=== PATIENT | female | born 1965 | race African-American/Black ===

== ENCOUNTER 2019-06-29 10:47 | Inpatient (IN) ==
[2019-06-29] MEDS ORDERED: LABETALOL IV ONE (11:04)
[2019-06-29] MEDS ORDERED: MORPHINE IV ONE (11:06)
[2019-06-29] MEDS ORDERED: ZOFRAN IV ONE (11:06)
[2019-06-29] MEDS ORDERED: AFRIN NASAL SPRAY NAS ONE (11:12)
--- NOTE | 2019-06-29 11:21 | EKG Report ---
Test Performed on : 06/29/2019 11:15:06 AM Test Reason : severe hypertension Blood Pressure : / mmHG Vent. Rate : 090 BPM Atrial Rate : 090 BPM P-R Int : 132 ms QRS Dur : 092 ms QT Int : 380 ms P-R-T Axes : 055 -40 094 degrees QTc Int : 464 ms Normal sinus rhythm. Possible Left atrial enlargement Left axis deviation Left ventricular hypertrophy with repolarization abnormality Abnormal ECG When compared with ECG of 14-FEB-2019 15:58, No significant change was found Unconfirmed Result
--- NOTE | 2019-06-29 11:30 | Diag Imaging Result Doc PS360 ---
EXAM: CHEST-PORTABLE HISTORY: hypertension TECHNIQUE: Single view COMPARISON: 02/14/2019 FINDINGS: The lungs are well expanded. The heart is enlarged. The vessels are not distended. There are no infiltrates. No effusion identified. IMPRESSION: Cardiomegaly Electronically signed by Matty Bacon 06/29/2019 11:27 AM
[2019-06-29 11:49] LABS: BASO# 0.03 X1000 (0.0-0.2); BASO% 0.4 % (0.0-0.8); EOS# 0.14 X1000 (0.0-0.7); EOS% 1.8 % (0.0-10.0); HEMATOCRIT 39.4 % (37.0-47.0); HEMOGLOBIN 11.9 g/dL (12.0-16.0); IMM GRAN# 0.06 X1000 (0.0-0.04); IMM GRAN% 0.8 % (0.0-0.5); LYMPH# 1.54 X1000 (1.2-3.4); LYMPH% 19.9 % (20.5-51.1); MCH 23.4 PG (27-31); MCHC 30.2 g/dL (33-37); MCV 77.4 FL (81-99); MONO% 6.5 % (1.7-9.3); MPV 11.4 FL (7.4-10.4); NEUT# 5.45 X1000 (1.4-6.5); NEUT% 70.6 % (42.2-75.2); PLT 305 X1000 (130-400); RBC 5.09 XMIL (4.2-5.4); RDW 15.6 % (11.5-14.5); WBC 7.72 X1000 (4.8-10.8)
[2019-06-29 11:57] LABS: INR 1.02; PROTIME 13.5 Seconds (11.0-16.0)
[2019-06-29 11:58] LABS: PTT 31.3 Seconds (22.3-41.8)
--- NOTE | 2019-06-29 12:01 | PROVIDER DOCUMENTATION ---
This chart was entered by Norma Mcfarland Scribe, acting as scribe for Octaviano Phelps MD. HPI-EENT General - General Chief Complaint: B/P Problems Stated Complaint: NOSEBLEED Time Seen by Provider: 06/29/19 10:50 Source: patient, EMS (first response) Allergies/Adverse Reactions: Patient Allergies Allergy/AdvReac Type Severity Reaction Status Date / Time No Known Allergies Allergy Verified 06/28/19 19:17 Home Medications: Home Medication List Medication Instructions Recorded Confirmed Last Taken Type Clonidine [Catapres] 1 tab PO DAILY 06/28/19 06/28/19 06/28/19 History Empagliflozin/Metformin HCl 1 tab PO BID 06/28/19 06/28/19 06/28/19 History [Synjardy Xr 25-1,000 mg Tablet] Insulin Humulin 70/30 [Humulin 35 unit SUBQ BID CC 06/28/19 06/28/19 06/28/19 History 70/30] - History of Present Illness-EENT General Nature of Presenting Problem: 54 yobf presents to the ed via ems with c/o epistaxis and elevated BP (243/137). pt sts has hx of HTN and did not take medications this am. pt was seen at [facility] on 06/27/19 for rt sided epistaxis and this am left nare started bleedin g as well. pt has packing in place in rt nare on exam pt called dr moon this am and was told to come to ed. dr moon will see pt in ed EENT Location: reports: nose Severity: reports: moderate Onset/Duration: reports: this morning Timing: reports: still present Prearrival Treatment: Initiated nasal packing (rt nare) Associated Symptoms: reports: denies symptoms Locality of Occurance: Home Similar Symptoms Previously?: Yes (epistaxis on 06/27/19) Recently seen or treated by another doctor?: Yes (in ed 06/27/19) - Nose Nose Problem Symptoms: nosebleed Review of Systems - Adult - REVIEW OF SYSTEMS - ADULT Constitutional: denies: chills, fever Eyes: reports: no symptoms reported Ears, Nose, Mouth & Throat: reports: see HPI, epistaxis. denies: throat pain Cardiovascular: denies: chest pain, palpitations Respiratory: denies: cough, wheezing Gastrointestinal: denies: abdominal pain, diarrhea, nausea, vomiting Genitourinary: reports: no symptoms reported Musculoskeletal: denies: back pain, neck pain Integumentary: reports: no symptoms reported Neurological: denies: dizziness/vertigo, headache/migraines, tremors Psychiatric: reports: no symptoms reported Endocrine: reports: no symptoms reported Hematologic/Lymphatic: reports: no symptoms reported Allergic/Immunologic: reports: no symptoms reported All Other Systems: Reviewed and Negative Past History - Adult - PAST MEDICAL HISTORY-ADULT Review of Records: reports: Old Records Reviewed, Nursing Assessment Review, Medications Reviewed, Social history reviewed & non-contributory. Major Childhood Illnesses: reports: denies history Cardiovascular: reports: HTN, hyperlipidemia Respiratory: reports: denies history Gastrointestinal: reports: GERD Obstetrical/Gynecological: reports: denies history Genitourinary: reports: denies history Musculoskeletal: reports: denies history Neurological: reports: CVA, stroke deficits (slurred speech) Psychiatric: reports: denies history Endocrine/Immune: reports: Diabetes Diabetes Type: Type 2 Other Conditions: reports: denies history - PRIOR SURGERIES/PROCEDURES Surgical/Procedure History: reports: hysterectomy, - IMMUNIZATION STATUS Childhood Immunizations: See Nurse Assessment Flu Vaccine: See Nurse Assessment - FAMILY HISTORY Family History: reviewed, not pertinent - SOCIAL HISTORY Smoking: quit greater than 1 year Substance Use: alcohol Alcohol Use Frequency: occasionally Number of drinks per typical drinking period:: 3-4 drinks Living Situation: family Physical Exam- EENT - Physical Exam EENT Initial Vital Signs Reviewed: Yes (noted BP 223/126 did not take HTN meds today) General Appearance: appears well, alert, no apparent distress Eye Exam: bilateral eye: normal inspection, PERRL Ear Exam: bilateral ear: auricle normal, canal normal, TM normal Nasal Exam: active bleeding (left side), dried blood (rt nare), other (has packing in rt nare) Throat Exam: other (pt has post nasal blood seen fro nare) Neck: non-tender, full range of motion, normal inspection Respiratory: chest non-tender, lungs clear, normal breath sounds Cardiovascular: normal peripheral pulses, regular rate, rhythm Abdominal Exam: non tender, soft Lymphatic: no adenopathy Back Exam: no CVA tenderness, no vertebral tenderness Extremity: normal range of motion, non-tender, normal gait, normal inspection Integumentary: normal color, normal turgor, warm/dry Neurologic: grossly normal Psych/Mental Status: normal mood/affect, normal thought content, normal thought process, oriented x 3 Progress - PLAN OF CARE/RESULTS Progress/Plan/Lab Results: Vital Signs - 8 hr 06/29/19 10:56 06/29/19 11:08 06/29/19 11:14 Temperature 98.3 F Pulse Rate 88 91 H Respiratory Rate 20 23 Blood Pressure 223/136 223/136 219/140 O2 Sat by Pulse Oximetry 97 98 98 Laboratory Results - last 24 hr 06/29/19 06/29/19 11:24 11:24 WBC 7.72 RBC 5.09 Hgb 11.9 L Hct 39.4 MCV 77.4 L MCH 23.4 L MCHC 30.2 L RDW Std Deviation 15.6 H Plt Count 305 MPV 11.4 H Immature Gran % (Auto) 0.8 H Neut % (Auto) 70.6 Lymph % (Auto) 19.9 L [place] % (Auto) 6.5 Eos % (Auto) 1.8 Baso % (Auto) 0.4 Immature Gran # (Auto) 0.06 H Neut # (Auto) 5.45 Lymph # (Auto) 1.54 [place] # (Auto) 0.50 Eos # (Auto) 0.14 Baso # (Auto) 0.03 PT 13.5 INR 1.02 PTT (Actin FS) 31.3 Orders Category Date Time Status Misc. NRSG Communication Order DIRECTED Care 06/29/19 11:05 Active Nursing- Obtain EKG once Care 06/29/19 11:03 Active Saline Loc NOW Care 06/29/19 11:03 Active CHEST-PORTABLE [RAD] Stat Exams 06/29/19 11:04 Completed CBC WITH ELECTRONIC DIFF [HEME] Stat Lab 06/29/19 11:24 Completed COMPREHENSIVE METABOLIC PANEL [CHEM] Stat Lab 06/29/19 11:24 Received PRO B-NATRIURETIC PEPTIDE Stat Lab 06/29/19 11:24 Received PROTIME WITH INR [COAG] Stat Lab 06/29/19 11:24 Completed PTT [COAG] Stat Lab 06/29/19 11:24 Completed TROPONIN T Stat Lab 06/29/19 11:24 Received TYPE & SCREEN [BBK] Stat Lab 06/29/19 11:24 Received Labetalol Med 06/29/19 11:04 Discontinued 20 mg IV NOW ONE Morphine Med 06/29/19 11:06 Discontinued 2 mg IV NOW ONE Ondansetron [Zofran] Med 06/29/19 11:06 Discontinued 4 mg IV NOW ONE Oxymetazoline Nasal [place] [Afrin Nasal [place]] Med 06/29/19 11:12 Discontinued 1 ml ANISA NOW ONE EKG [EKG] Stat Ther 06/29/19 11:04 Draft Result Diagrams: 06/29/19 11:24 - REASSESSMENT Reassessment #1 Time Reassessed: 11:59 Status: improving (GIven iVF, morphine/zofran for pain, IV labetalol for HTN) - EKG 1 Time of EKG reading by physician:: 11:15 EKG Read and Signed by:: Octaviano Phelps EKG Interpretation (*Must complete 3 of following elements*): Abnormal Rate: 90 Rhythm: nsr [place]: left (deviation) QRS: LVH (with repolarization abnormality) NE Interval: normal ST Wave: normal Comments: possible left atrial enlargement - XRAY 1 XRAY: Bilateral XRAY Study: Chest Impression: See EMR Report (EXAM: CHEST-PORTABLE HISTORY: hypertension TECHNIQUE: Single view COMPARISON: 02/14/2019 FINDINGS: The lungs are well expanded. The heart is enlarged. The vessels are not distended. There are no infiltrates. No effusion identified. IMPRESSION: Cardiomegaly Electronically signed by Matty Bacon 06/29/2019 11:27 AM 06/29/19 1127 Interpreting Physician: Matty Bacon MD Dictated Date/Time: 06/29/19 1126 cc: Octaviano Phelps MD; None,PCP) - CONSULTS/PCP/HOSPITALIST Notification #1 *Consult/PCP/Hospitalist*: dr moon ENT Time Discussed: 11:51 (is at bedside and speaking with pt and dr phelps. pt will go to sx) Consult Disposition: Will see in ED Departure - Departure Date of Disposition Decision: 06/29/19 Time of Disposition Decision: 12:00 DIAGNOSIS: Hypertensive urgency, malignant, Epistaxis, recurrent Disposition: ADMITTED INPATIENT 09 Certified Medical Emergency: Emergent Condition: Fair Referrals and Follow-Ups: None,PCP [Primary Care Provider] - - Critical Care Note This patient required my direct & personal management of CC.: Yes Total Time (mins): 31 Critical Care Statement: This patient required my direct personal management to treat or rule out processes, the absence of which, could potentiallly result in sudden, clinically significant life or limb threatening deterioration. Attestation - Physician/ BILL Attestation Patient care was provided by Advanced Practice Provider:: No The physician spent face to face time with patient:: Yes Advanced Practice Provider documentation review:: Supervising physician onsite and consulted in the evaluation and care of this patient. The physician did have a face to face encounter with the patient. This chart was documented by the indicated scribe, (Norma Mcfarland Scribe) and accurately reflects the services I performed and decisions made by me, Octaviano Phelps MD, as attested by the provider's signature.
[2019-06-29] MEDS ORDERED: NEO-SYNEPHRINE 1% NASAL SPRAY ONE (12:05)
[2019-06-29 12:18] LABS: AGAP 14; ALB/GLOB RATIO 1.4; ALBUMIN 4.4 g/dL (3.5-5.0); ALKALINE PHOSPHATASE 82 U/L (32-104); BUN 10 mg/dL (8-22); CALCIUM 9.6 mg/dL (8.8-10.2); CHLORIDE 99 mmol/L (98-107); COSMO 280; CREATININE 0.7 mg/dL (0.5-0.9); ESTIMATED GFR > 60; GLUCOSE 192 mg/dL (70-104); GOT 14 U/L (10-30); GPT 11 U/L (10-36); POTASSIUM 4.4 mmol/L (3.5-5.1); SODIUM 138 mmol/L (136-145); TCO2 25 mmol/L (25-35); TOTAL BILIRUBIN 0.44 mg/dL (0.20-1.00); TOTAL PROTEIN 7.6 g/dL (6.3-8.3)
[2019-06-29] MEDS ORDERED: AFRIN NASAL SPRAY ONE (12:20)
[2019-06-29] MEDS ORDERED: FENTANYL ONE (12:26)
[2019-06-29] MEDS ORDERED: VERSED ONE (12:26)
[2019-06-29] MEDS ORDERED: DIPRIVAN 1% ONE ×2 (12:26→12:45)
[2019-06-29] MEDS ORDERED: XYLOCAINE 1%/EPI 1:100,000 ONE (13:11)
[2019-06-29] MEDS ORDERED: ZOFRAN ONE (13:51)
[2019-06-29] MEDS ORDERED: XYLOCAINE-MPF 2% ONE (13:51)
[2019-06-29] MEDS ORDERED: QUELICIN (DOSE) ONE (13:51)
[2019-06-29] MEDS ORDERED: VENTOLIN HFA ONE (13:52)
[2019-06-29] MEDS ORDERED: APRESOLINE IV ONE (14:06)
[2019-06-29] MEDS ORDERED: BREVIBLOC ONE (14:06)
[2019-06-29] MEDS ORDERED: ZOFRAN IV PRN (14:11)
[2019-06-29] MEDS ORDERED: APRESOLINE ONE (14:21)
[2019-06-29] MEDS: CARDENE 20 MG/NS 20 MG/200 ML PIGGYBACK IV SCH ×5 (14:40→23:42)
[2019-06-29] MEDS ORDERED: NORVASC PO SCH (17:45)
[2019-06-29] MEDS ORDERED: COZAAR PO ONE (17:57)
[2019-06-29] MEDS ORDERED: ALDACTONE PO ONE (17:58)
[2019-06-29] MEDS: LR 1,000 ML IV SCH (18:17)
[2019-06-29] MEDS: NORCO-5 PO PRN (18:18)
[2019-06-29] MEDS: HUMULIN R SUBQ SCH ×2 (18:29→20:32)
[2019-06-29] MEDS: MIRALAX PO SCH (18:30)
[2019-06-29] MEDS: NORVASC PO SCH (20:31)
[2019-06-29] MEDS: COREG PO SCH (20:32)
[2019-06-30] MEDS: NORCO-5 PO PRN ×4 (00:12→20:07)
--- NOTE | 2019-06-30 00:58 | OPERATIVE NOTE ---
PROCEDURE DATE: 06/29/2019 PREOPERATIVE DIAGNOSIS: Right posterior epistaxis. POSTOPERATIVE DIAGNOSIS: Right posterior epistaxis with right posterior nasal septal deviation. PROCEDURE: Septoplasty, endoscopic cauterization of epistaxis with right anterior-posterior nasal packing. SURGEON: Ravindra Myers MD ANESTHESIA: General endotracheal. INDICATIONS: The patient is a 54-year-old who has been having intermittent bleeding from the right nasal cavity for the past 3 to 4 days. She went to the [facility] last night and received a balloon pack. She has had persistent bleeding and, at times, has been very brisk. She called the office for significant nosebleed post packing this morning. The bleeding was severe enough that she called an ambulance and was transported to [facility]. There she was noted to have a right nasal pack with persistent bleeding and hypertension. There was question of whether this is a hypertension issue or a issue with a vascular area that needed cauterization. She was taken to the operating room to remove the pack and examine the nose for the cause of the bleeding. PROCEDURE: The patient brought to the operating room, placed supine on the operating table. Satisfactory general endotracheal anesthesia was administered. The patient prepped and draped in usual manner for cauterization of the epistaxis. The right nasal cavity balloon was removed. After decongesting the nasal cavity bilaterally with Shola-Synephrine cotton pledgets, endoscopes were used to examine the right nasal cavity. There were a couple of areas of potential bleeding, 1 on the right inferior turbinate and 1 on the right middle turbinate. These were cauterized. There was a septal spur that was very pointed where most of the blood seemed to be pooling in that area. Even with the endoscope, we could not get around this area to see what was posterior to it. It was decided the endoscopic septoplasty was the only way to get access and to even pack the nose if we needed to. The septum was injected with 1% Xylocaine with 1:100,000 epinephrine. An incision was made in the mucoperiosteal on the right side. The mucoperiosteum over the bony deviation was divided. Using the butter knife, the spur was fractured. It was then removed in its entirety with only a small fenestration on the opposite side. This allowed access to the entire right nasal cavity. There was indentation of the turbinate where the septum was impinging on the turbinate. It looked like this could possibly be the bleeding site and this area was cauterized. There were no other significant bleeding sites identified. Examination of the of the left nasal cavity did not show any significant bleeding site. It was decided that a light balloon pack could now be placed back in the right nasal cavity. It would place pressure on the probable areas of epistaxis and she could be monitored in the hospital and her blood pressure controlled as well. Intraoperative consultation was obtained with the hospitalist for postoperative care. This completed what we felt was a successful procedure. The patient was awakened from anesthesia and taken to recovery room in satisfactory condition. cc: MD Stone Reynolds MD
[2019-06-30] MEDS: CARDENE 20 MG/NS 20 MG/200 ML PIGGYBACK IV SCH ×2 (02:03→03:21)
[2019-06-30] MEDS: TYLENOL PO PRN ×2 (02:03→17:15)
[2019-06-30] MEDS: LR 1,000 ML IV SCH (03:22)
[2019-06-30 05:53] LABS: BASO# 0.02 X1000 (0.0-0.2); BASO% 0.2 % (0.0-0.8); EOS# 0.04 X1000 (0.0-0.7); EOS% 0.4 % (0.0-10.0); HEMOGLOBIN 12.2 g/dL (12.0-16.0); IMM GRAN# 0.07 X1000 (0.0-0.04); IMM GRAN% 0.8 % (0.0-0.5); LYMPH# 1.62 X1000 (1.2-3.4); LYMPH% 17.6 % (20.5-51.1); MCH 23.6 PG (27-31); MCHC 30.5 g/dL (33-37); MCV 77.2 FL (81-99); MONO# 0.71 X1000 (0.11-0.59); MONO% 7.7 % (1.7-9.3); MPV 11.1 FL (7.4-10.4); NEUT# 6.73 X1000 (1.4-6.5); NEUT% 73.3 % (42.2-75.2); PLT 322 X1000 (130-400); RBC 5.18 XMIL (4.2-5.4); RDW 15.5 % (11.5-14.5); WBC 9.19 X1000 (4.8-10.8)
[2019-06-30] MEDS: CARDENE 40 MG/NS 40 MG/200 ML PIGGYBACK IV SCH ×5 (05:59→23:29)
[2019-06-30 06:20] LABS: CHOLESTEROL 234 mg/dL (0-200); HDL 34 mg/dL (45-65); IRON SATURATION 11 %; LDL 130 mg/dL; TIBC 348 ug/dL; TOTAL IRON 39 ug/dL (49-151); TRIGLYCERIDES 350 mg/dL (35-135); UNBOUND IRON 309 ug/dL (112-346); VLDL 70 mg/dL
[2019-06-30 06:23] LABS: AGAP 15; ALB/GLOB RATIO 1.6; ALBUMIN 4.8 g/dL (3.5-5.0); ALKALINE PHOSPHATASE 89 U/L (32-104); BUN 6 mg/dL (8-22); CALCIUM 9.7 mg/dL (8.8-10.2); CHLORIDE 99 mmol/L (98-107); COSMO 282; CREATININE 0.7 mg/dL (0.5-0.9); ESTIMATED GFR > 60; GLUCOSE 186 mg/dL (70-104); GOT 13 U/L (10-30); GPT 13 U/L (10-36); HEMOGLOBIN A1C 9.8 % (4.8-6.0); MAGNESIUM 1.9 mg/dL (1.5-2.7); POTASSIUM 3.9 mmol/L (3.5-5.1); SODIUM 140 mmol/L (136-145); TCO2 26 mmol/L (25-35); TOTAL BILIRUBIN 0.55 mg/dL (0.20-1.00); TOTAL PROTEIN 7.8 g/dL (6.3-8.3)
[2019-06-30] MEDS: HUMULIN R SUBQ SCH ×4 (06:32→20:02)
[2019-06-30 06:37] LABS: FERRITIN 90 ng/mL (13-150)
--- NOTE | 2019-06-30 07:01 | CONSULTATION ---
DATE OF CONSULTATION: 06/29/2019 CONSULTING PHYSICIAN: Dr. Myers, ENT. REASON FOR CONSULTATION: Medical management of hypertension and diabetes. HISTORY OF PRESENT ILLNESS: Ms. Sofie Hurd is a 54-year-old female with a medical history of uncontrolled hypertension, also with diabetes mellitus type 2, along with medication noncompliance. States that for the last 2 days, she has had headache, along with epistaxis. She presented to [place] ER yesterday with right naris epistaxis. That was packed and then she was sent home. She was also hypertensive up to the 200s during that time. Once they managed her blood pressure a little better, she was sent home. She came back with the other naris with epistaxis, and Dr. Myers saw her in the emergency department here at [facility]. She was then urgently taken to surgery, where part of the septum was removed, and no obvious source of bleeding was found, was packed, and then sent to PACU. She continued to have blood pressures 200s/130s or 140s, and so we have been asked to help with that management. She is going to be started on a Cardene drip, and sent to the ICU for improved management of her hypertension. PAST MEDICAL HISTORY: 1. Hypertension. 2. Diabetes mellitus type 2. 3. Morbid obesity. 4. Medication noncompliance. States she has not taken her medications for at least 2 days or more. 5. Reported CVA in 08/2015 that left her with slight slurred speech. PAST SURGICAL HISTORY: 1. Hysterectomy. 2. section x4. SOCIAL HISTORY: Denies tobacco, but states she drinks 1 beer every night. She works at [employer]. She denies any illicit drug use. FAMILY HISTORY: Mother had stroke and diabetes. She was unsure of what her father had. ALLERGIES: No known drug allergies. MEDICATIONS: Home medications have not been reconciled yet, but she is noncompliant with them as well. REVIEW OF SYSTEMS: A 14-point review of systems was complete, and all were negative, except for those mentioned in the above HPI. PHYSICAL EXAMINATION: Vital Signs: Temperature 97.2 degrees, heart rate 91, respiratory rate 26, blood pressure 236/132, O2 saturation 96% on closed face mask oxygen. General: Ms. Sofie Hurd is a 54-year-old female. She is still drowsy from surgery, but is able to answer questions appropriately. HEENT: Atraumatic, normocephalic. Pupils equal, round, reactive to light. Extraocular movements intact. Mucous membranes are moist. Right naris is packed. Neck: Trachea midline. Cardiovascular: S1, S2. Regular rate and rhythm. No rubs, gallops, murmurs. No lower extremity edema. There are +2 dorsalis and radial pulses. Negative for JVD or carotid bruits. Pulmonary: Clear to auscultation. Bilateral breath sounds. No accessory muscle use or work of breathing noted. GI: Soft, nontender, nondistended. Positive bowel sounds x4. Extremities: Moves all extremities equally. Full range of motion. Neurologic: A and O x3. Follows commands. Sensory is intact. She is actually not extremely alert. She is still drowsy right now postop. Skin: Warm, dry, intact. LABORATORY DATA: White blood cells 7000, hemoglobin 11, hematocrit 39, platelet count 305. INR is 1.02, PTT is 31.3. Sodium 138, potassium 4.4, BUN 10, creatinine 0.7, glucose 192, calcium 9.6, bilirubin 0.44, AST 14, ALT 11. Troponin less than 0.01. ProBNP is 206. Albumin is 4.4. IMAGING: Chest x-ray: Cardiomegaly. EKG: Normal sinus rhythm, rate 90, QTc was 464. She had an echo in February, which showed left atrial enlargement, left ventricular hypertrophy, with a preserved ejection fraction of 65%. ASSESSMENT AND PLAN: 1. Epistaxis, likely secondary to hypertensive emergency. She has had this blood pressure in the 200s/140s for 2 days, which has caused her headaches and nosebleeds. She is now postoperative with Dr. Myers, where she has had part of her septum removed and some nasal packing. 2. Hypertensive urgency emergency or malignant hypertension, 230s/130s to 140s. She got labetalol in the emergency room preoperatively. She got esmolol intraoperatively. We have ordered a 1-time dose of hydralazine, and we are going to get her started on a Cardene drip. She has medication noncompliance and a history of a stroke, which is likely secondary to her issues of noncompliance and severe hypertension. However, her kidney function is currently intact. 3. Diabetes mellitus type 2. Will do pattern blood glucoses, sliding scale insulin. 4. History of stroke. 5. Deep venous thrombosis prophylaxis. Sequential compression devices. Dictated by JADE Nolen for Stone Vaz MD cc: JADE Nolen MD
[2019-06-30] MEDS: COZAAR PO SCH (08:05)
[2019-06-30] MEDS: COREG PO SCH ×2 (08:05→20:07)
[2019-06-30] MEDS: NORVASC PO SCH ×2 (08:05→20:07)
[2019-06-30] MEDS: ALDACTONE PO SCH (08:05)
[2019-06-30] MEDS: CATAPRES PO SCH (08:06)
[2019-06-30] MEDS: MIRALAX PO SCH (08:07)
--- NOTE | 2019-06-30 08:57 | CONSULTATION ---
DATE OF CONSULTATION: 06/29/2019 ADDENDUM: I have seen and examined Ms. Hurd today. She was in the ICU at the time of the encounter, and had about 3 different family members at the bedside. Ms. Hurd had an uncontrollable epistaxis which could not be controlled with initial management in the ER, and had to be sent to the OR by ENT today. Bleeding has currently stopped. However, her blood pressures were found to be extremely high 223/136 on admission. We have been consulted for blood pressure and other comorbidities management. PHYSICAL EXAMINATION: Vital Signs: Ms. Hurd' current vitals, blood pressure 167/88, pulse 93, respirations 26, and temperature 98.2 degrees. General: Ms. uHrd is a 54-year-old female. She is in bed in no distress. HEENT: Mucosa is pink and moist. Anicteric. Acyanotic. Neck: Supple. Lungs: Chest was clear to auscultation. No crepitations. Cardiovascular: Regular rate and rhythm. Abdomen: Soft. Distended, but nontender. There is an old infraumbilical surgical scar. LABORATORY DATA: Reviewed. She has microcytic anemia. Chemistry is completely unremarkable. DIAGNOSTIC: 1. A chest x-ray shows cardiomegaly. 2. An EKG shows a normal sinus rhythm with left ventricular hypertrophy. ASSESSMENT: 1. Epistaxis, most likely due to severe hypertension. The patient is status post cauterization and other ENT intervention. 2. Severe hypertensive urgency. The patient is currently on nicardipine drip. We are going to start her on her home medications, and titrate the drip off. 3. Left ventricle hypertrophy, most likely due to hypertensive heart disease. Chest x-ray shows cardiomegaly. We are going to do an echocardiogram to see her EF. 4. Diabetes mellitus. Patient will be started on an insulin regimen. 5. Obesity with BMI of 32.0. We will also check her lipids level, and address it accordingly since she is also diabetic. 6. Microcytosis presumed most likely due to iron deficiency. We will check her iron levels. PLAN: Today, we are going to start Ms. Hurd on her home medications including the amlodipine and Coreg. I have also added losartan and spironolactone. We are going to be titrating the drip off hopefully today. We will check on her lipids level, and we will get an echocardiogram to complete her stratification. Ms. Hurd has been advised on medication compliance. Please refer to the details of the consult note in the chart. Thank you for the consult. cc: Stone Vaz MD
--- NOTE | 2019-06-30 09:22 | Diag Imaging Result Doc PS360 ---
EXAM: CHEST-1 VIEW - 06/30/2019 HISTORY: SOB TECHNIQUE: Portable chest one view COMPARISON: 06/29/2019 FINDINGS: Heart size appears enlarged and mildly decreased compared to prior. There is mild prominence of markings at the right base. There is no dense consolidation, gross vascular congestion, substantial pleural effusion, or pneumothorax identified. IMPRESSION: Cardiomegaly, with apparent mild decrease in heart size compared to prior. Mild prominence of markings at right base. No dense consolidation or gross vascular congestion. Electronically signed by Isaak Mills 06/30/2019 9:19 AM
[2019-06-30] MEDS ORDERED: LASIX IV ONE (11:34)
[2019-06-30] MEDS ORDERED: XOPENEX NEB INH PRN (11:35)
[2019-06-30] MEDS ORDERED: NS NEB INH SCH (11:45)
[2019-06-30] MEDS: HUMULIN 70/30 SUBQ SCH ×2 (12:08→19:04)
[2019-06-30] MEDS ORDERED: INSULIN PEN NEEDLES ONE ×2 (12:11→19:07)
--- NOTE | 2019-06-30 12:42 | PROGRESS NOTE ---
DATE: 06/30/2019 Postoperative day #1, status post septoplasty with cauterization of epistaxis and balloon packing. She is doing well. There was no significant bleeding. She still is requiring Cardene drip to control her significant hypertension. She is tolerating p.o. and resting comfortably. OBJECTIVE: On physical exam, no significant bleeding from the nasal cavity or in the oral cavity. IMPRESSION: 1. Epistaxis, status post septoplasty and cauterization controlled with packing. 2. Hypertension requiring a Cardene drip. I appreciate the help of Dr. Vaz. We will discuss the situation with him. From a nasal bleeding standpoint, she could be discharged, but the bleeding has most likely been from hypertension so before discharge her hypertension needs to be under reasonable control. We will defer to Dr. Vaz on that. 3. Diabetes seems to be under control, but diet is being advanced today so we will see how she does. We will discuss with Dr. Vaz. cc: MD Stone Reynolds MD
--- NOTE | 2019-06-30 14:38 | PROGRESS NOTE ---
DATE: 06/30/2019 SUBJECTIVE: This morning, Ms. Hurd refers to be doing a lot better. She said the oxygen is just drying her nostrils. She has been coughing but reviewing her vitals, it appears that she has been quite hypoxemic since yesterday. OBJECTIVE: Current Vital Signs: Blood pressure is 141/83, pulse of 87, respirations are 20, temperature is 98.1. General Examination: Ms. Hurd is a 54-year-old, female. She is in bed. She does not seem to be in any distress. The right nostril is packed. Chest: Air entry is bilaterally reduced. There is a faint wheezing and some crackles in the posterior lung turcios. Cardiovascular: Regular rate and rhythm. GI: Abdomen is soft, nontender. Bowel sounds present. There is an old infraumbilical surgical scar. Extremities: No pedal edema. [employer]: The patient is awake, alert, and oriented. Laboratory Data: WBC is 9.19, hemoglobin is 12.2, platelet count of 322,000. Chemistry is also reviewed. Glucose is 186. The patient's A1c is 9.8. So far, the iron studies seem to suggest deficiency. Cholesterol has a remarkable abnormality as well. A review of patient's echocardiogram from February showed a normal ejection fraction. There was obviously a mild left ventricular hypertrophy. A stress test which was done did not show any ischemic changes. ASSESSMENT: 1. Epistaxis. The patient is status post septoplasty with endoscopic cauterization of the epistaxis with right anterior and posterior nasal packing. She seems to be fairly stable. Hemoglobin and hematocrit remain stable. Patient has not needed any blood transfusion. 2. Severe uncontrolled hypertension (hypertensive urgency) associated with epistaxis. The patient has been started on oral medications. The drip is being gradually weaned off. Blood pressures are a lot better today. 3. Left ventricular hypertrophy due to hypertensive heart disease. 4. Diabetes mellitus with presenting A1c of 9.8. The patient has been started on an insulin regimen. 5. Morbid obesity, body mass index of 32.0. 6. Acute hypoxemic respiratory failure. I think this is a combination of pulmonary edema from congestive heart failure due to preserved ejection fraction, as well as possible aspiration of the upper airway secretions/blood from the epistaxis. We will give as-needed nebulization. We will give the patient a one-time dose of Lasix and re-evaluate her later today. White cell count is within normal range. She is not febrile. I do not think it is quite infected. I will hold off on antibiotics. 7. Microcytosis secondary to iron deficiency. The patient will be started on iron pills once she is more stabilized. 8. Constipation. We will continue using the bowel regimen. 9. Dyslipidemia. We will start Ms. Hurd on a statin drug. cc: Stone Vaz MD I have spoken with Dr Myers today. He palsn to remove the nasal packing on Thursday. Will try and wean her off the Cardene drip today. Hopefully transfer her out of the unit tomorrow. Continue to titrate po BP meds Possible discharge on Thursday after nasal pack removal MTDD
[2019-06-30] MEDS ORDERED: BLISTEX MEDICATED BERRY LIP BALM TOP PRN (14:44)
[2019-06-30] MEDS: LIPITOR PO SCH (20:07)
[2019-07-01] MEDS: CARDENE 40 MG/NS 40 MG/200 ML PIGGYBACK IV SCH ×2 (04:38→08:07)
[2019-07-01] MEDS: HUMULIN R SUBQ SCH ×4 (06:03→20:06)
[2019-07-01 06:14] LABS: BASO# 0.02 X1000 (0.0-0.2); BASO% 0.2 % (0.0-0.8); EOS# 0.05 X1000 (0.0-0.7); EOS% 0.4 % (0.0-10.0); HEMATOCRIT 37.8 % (37.0-47.0); HEMOGLOBIN 11.3 g/dL (12.0-16.0); IMM GRAN# 0.05 X1000 (0.0-0.04); IMM GRAN% 0.4 % (0.0-0.5); LYMPH% 12.8 % (20.5-51.1); MCH 23.3 PG (27-31); MCHC 29.9 g/dL (33-37); MCV 78.1 FL (81-99); MONO# 0.89 X1000 (0.11-0.59); MONO% 7.6 % (1.7-9.3); MPV 11.5 FL (7.4-10.4); NEUT# 9.19 X1000 (1.4-6.5); NEUT% 78.6 % (42.2-75.2); PLT 316 X1000 (130-400); RBC 4.84 XMIL (4.2-5.4); RDW 15.4 % (11.5-14.5)
[2019-07-01 06:44] LABS: AGAP 16; ALB/GLOB RATIO 1.2; ALKALINE PHOSPHATASE 81 U/L (32-104); BUN 7 mg/dL (8-22); CALCIUM 9.5 mg/dL (8.8-10.2); CHLORIDE 101 mmol/L (98-107); COSMO 279; CREATININE 0.7 mg/dL (0.5-0.9); ESTIMATED GFR > 60; GLUCOSE 125 mg/dL (70-104); GOT 9 U/L (10-30); GPT 9 U/L (10-36); MAGNESIUM 1.9 mg/dL (1.5-2.7); POTASSIUM 3.8 mmol/L (3.5-5.1); SODIUM 140 mmol/L (136-145); TCO2 23 mmol/L (25-35); TOTAL BILIRUBIN 0.57 mg/dL (0.20-1.00); TOTAL PROTEIN 7.4 g/dL (6.3-8.3)
[2019-07-01] MEDS: HUMULIN 70/30 SUBQ SCH ×2 (07:38→16:58)
[2019-07-01] MEDS: MIRALAX PO SCH (08:07)
[2019-07-01] MEDS: COZAAR PO SCH (08:08)
[2019-07-01] MEDS: CATAPRES PO SCH (08:08)
[2019-07-01] MEDS: COREG PO SCH ×2 (08:08→20:06)
[2019-07-01] MEDS: NORCO-5 PO PRN (08:08)
[2019-07-01] MEDS: ALDACTONE PO SCH (08:08)
[2019-07-01] MEDS: NORVASC PO SCH ×2 (08:08→20:06)
[2019-07-01] MEDS: LEVAQUIN PO SCH (08:10)
--- NOTE | 2019-07-01 14:03 | PROGRESS NOTE ---
DATE: 07/01/2019 SUBJECTIVE: This patient states that she is feeling a bit better but she is dizzy today, she has been placed back on nicardipine drip because her blood pressure went up during the night, I will increase her dose of carvedilol from 6.25 to 12.5. She has been placed also on losartan and back on her home medications amlodipine and clonidine, spironolactone also has been added to her medications. As per the patient also she has been coughing up green phlegm and also some blood, her white blood cell count has been going up since admission from 7 to 9 and now 11.7, I will start this patient on levofloxacin to cover a respiratory infection. OBJECTIVE: Vital Signs: Temperature 97.6 degrees, pulse 96, respiratory rate 23, blood pressure 167/91, oxygen saturation 93 on room air. HEENT: Head normocephalic, no trauma. PERRLA. She does have a pack on her right nostril. Chest: Some crepitus and rhonchi at the bases and faint expiratory wheezing. Cardiovascular: RRR. Abdomen: Soft, nontender, nondistended. No hepatosplenomegaly, she has an old scar in the infraumbilical area. Extremities: No edema, no clubbing, no cyanosis. Neurological: The patient is alert, she is oriented x3. No focal deficits. LABORATORY: WBC 11.7, hemoglobin 11.3, hematocrit 37.8, platelet 316,000. Sodium 140, potassium 3.8, chloride 101, bicarbonate 23, BUN 7, creatinine 0.7, glucose 125, calcium 9.5, magnesium 1.9. ASSESSMENT AND PLAN: 1. Epistaxis status post septoplasty and endoscopic cauterization of the bleeding area with right anterior and posterior nasal packing, she seems to be stable. Hemoglobin and hematocrit decreased a little bit compared with yesterday but I do not think she is having now an active bleeding. She has been coughing up some blood but it looks brown and not bright red. 2. Severe uncontrolled hypertension/hypertensive urgency associated with epistaxis, she has been placed back on the nicardipine drip due to elevated blood pressure during the night, I will increase her dose of carvedilol from 6.25 to 12.5 and I will continue with the rest of the medications. 3. Left ventricular hypertrophy due to hypertensive heart disease aware. 4. Diabetes mellitus with presenting hemoglobin A1c of 9.8, she has been placed on insulin and she seems to be more stable. 5. Morbid obesity with a body mass index of 32.2, aware. 6. Acute hypoxemic respiratory failure. She seems to be better. She is not on nasal cannula right now and the oxygenation seems to be improving, chest x-ray yesterday showed cardiomegaly with no dense consolidation or gross vascular congestion, she received Lasix. Her white blood cell count has been increasing since admission, today is 11, I have started this patient on levofloxacin since she has been coughing up also green phlegm. 7. Likely upper respiratory infection, I have placed this patient on levofloxacin. Will continue to monitor. 8. Microcytic anemia secondary to iron deficiency anemia, iron level is 39 and total iron binding capacity is 348. 9. Dyslipidemia. She has been placed on statins. 10. Constipation. Continue with the same management. She has been placed on MiraLAX on a daily basis. 11. I have increased the dose of the carvedilol, she has been placed on nicardipine drip which I will continue for now but we will try to stop it. She had an echocardiogram done already that showed a normal ejection fraction but some hypertrophy at the level of the left ventricular area likely due to hypertension. 12. Medical noncompliance, as per the patient she was not taking her medications at home and apparently she does not have a primary care doctor but her diabetes doctor is providing her medications. CRITICAL CARE TIME: 40 minutes. cc: MD Stone Ca MD MTDD
[2019-07-01] MEDS: LIPITOR PO SCH (20:06)
--- NOTE | 2019-07-01 21:12 | HISTORY AND PHYSICAL ---
I appreciate the help of Dr. Vaz. Her blood pressure is improved. They are transitioning from IV to p.o. medication. She has had no bleeding since surgery. I removed the nasal packing from the right side. She has had no significant bleeding since removal. IMPRESSION: 1. Epistaxis seems to be under control. Packing removed. Should do well now that her blood pressure is control. 2. Hypertension. They are regulating her p.o. medications and are going to begin some education for her taking her home medications. 3. Please call me at [phone] for any problems this weekend. cc: MD Stone Reynolds MD
[2019-07-02 06:10] LABS: BASO# 0.02 X1000 (0.0-0.2); BASO% 0.2 % (0.0-0.8); EOS# 0.12 X1000 (0.0-0.7); EOS% 1.4 % (0.0-10.0); HEMATOCRIT 33.4 % (37.0-47.0); HEMOGLOBIN 9.8 g/dL (12.0-16.0); IMM GRAN# 0.05 X1000 (0.0-0.04); IMM GRAN% 0.6 % (0.0-0.5); LYMPH# 1.94 X1000 (1.2-3.4); LYMPH% 21.8 % (20.5-51.1); MCH 23.2 PG (27-31); MCHC 29.3 g/dL (33-37); MCV 79.1 FL (81-99); NEUT# 5.95 X1000 (1.4-6.5); PLT 290 X1000 (130-400); RBC 4.22 XMIL (4.2-5.4); RDW 15.1 % (11.5-14.5); WBC 8.88 X1000 (4.8-10.8)
[2019-07-02 07:10] LABS: AGAP 13; ALB/GLOB RATIO 0.8; ALBUMIN 3.2 g/dL (3.5-5.0); ALKALINE PHOSPHATASE 71 U/L (32-104); BUN 13 mg/dL (8-22); CALCIUM 9.5 mg/dL (8.8-10.2); CHLORIDE 97 mmol/L (98-107); COSMO 272; CREATININE 0.8 mg/dL (0.5-0.9); ESTIMATED GFR > 60; GLUCOSE 130 mg/dL (70-104); GOT 9 U/L (10-30); GPT 5 U/L (10-36); MAGNESIUM 1.9 mg/dL (1.5-2.7); POTASSIUM 3.8 mmol/L (3.5-5.1); SODIUM 135 mmol/L (136-145); TCO2 25 mmol/L (25-35); TOTAL BILIRUBIN 0.41 mg/dL (0.20-1.00); TOTAL PROTEIN 7.1 g/dL (6.3-8.3)
--- NOTE | 2019-07-02 07:15 | Diag Imaging Result Doc PS360 ---
EXAM: CHEST-PORTABLE HISTORY: dyspnea TECHNIQUE: Single view COMPARISON: 06/30/2019 FINDINGS: Poor inspiratory effort. The heart is not enlarged. Vascular distention is less prominent. No pleural effusions identified. No consolidation. IMPRESSION: Slight interval improvement Electronically signed by Matty Bacon 07/02/2019 7:13 AM
[2019-07-02] MEDS: HUMULIN R SUBQ SCH (07:22)
[2019-07-02] MEDS: MIRALAX PO SCH (08:04)
[2019-07-02] MEDS: COZAAR PO SCH (08:05)
[2019-07-02] MEDS: HUMULIN 70/30 SUBQ SCH (08:05)
[2019-07-02] MEDS: NORVASC PO SCH (08:05)
[2019-07-02] MEDS: LEVAQUIN PO SCH (08:05)
[2019-07-02] MEDS: COREG PO SCH (08:05)
[2019-07-02] MEDS: ALDACTONE PO SCH (08:05)
[2019-07-02] MEDS: CATAPRES PO SCH (08:05)
[2019-07-02] MEDS ORDERED: FLU VACCINE IM ONE (09:54)
[2019-07-02 10:36] VITALS: BP 109/69
--- NOTE | 2019-07-02 18:18 | DISCHARGE SUMMARY ---
ADMISSION DATE: 06/29/2019 DISCHARGE DATE: 07/02/2019 DISCHARGE DIAGNOSES: 1. Epistaxis status post septoplasty and endoscopic cauterization of the bleeding area with right anterior and posterior nasal packing. 2. Severe uncontrolled hypertension/hypertensive urgency associated with epistaxis. 3. Left ventricular hypertrophy due to hypertensive heart disease. 4. Diabetes mellitus with presenting hemoglobin A1c of 9.8. 5. Morbid obesity with a body mass index of 32.2. 6. Acute hypoxemic respiratory failure. 7. Likely upper respiratory tract infection. 8. Microcytic anemia secondary to iron deficiency anemia. 9. Dyslipidemia. 10. Constipation. 11. Medical noncompliance. PROCEDURES PERFORMED: 1. Septoplasty, endoscopic cauterization of epistaxis with right anterior/posterior nasal packing due to posterior epistaxis, dated 06/29/2019. 2. Chest x-ray dated 06/30/2019, impression: Cardiomegaly, mild prominence of marking at the right base. No dense consolidation or gross vascular congestion. 3. Chest x-ray dated 07/02/2019, impression: Slight interval improvement. HOSPITAL COURSE: A 54-year-old female with a past medical history of uncontrolled hypertension, uncontrolled diabetes and medication noncompliance, morbid obesity, possible CVA/TIA in 2016 states that for the past 2 days she had a headache along with epistaxis. She presented to [facility] the day before admission with right naris epistaxis. She was admitted on 06/29/2019. It was packed and then she was sent home. She was also hypertensive up to the 200s during that time. Once they managed the blood pressure a little better, she was sent home. She came back with the other naris with epistaxis. Dr. Myers saw her, ENT Department, in the emergency department at [facility]. She was then urgently taken to surgery where part of the septum was removed and no obvious source of bleeding was found, was packed and then sent to PACU. She continued to have a blood pressure in the 200s so Dr. Myers asked us to evaluate this patient. She was transferred to the ICU. She was placed on nicardipine drip, and we actually restarted her home medications, and we also started her on new medications. Her blood pressure improved significantly, and she is feeling much better. I had a really large conversation with this patient about taking her medications as prescribed. She has a history of medication noncompliance. As per the patient, she should be taking multiple medications for the blood pressure, but she only has clonidine at home. On the other hand, she uses insulin and also pills for her diabetes but she is taking only the pills and sometimes the insulin so basically she is not taking her medications as prescribed. I talked to her about this and she seems to understand. Vital signs are stable today, and she is feeling much better, and I will discharge this patient home. OBJECTIVE: Vital Signs: Temperature 99.1 degrees, pulse 77, respiratory rate 16, blood pressure 120/68, oxygen saturation 94% on room air. HEENT: Head normocephalic, no trauma. PERRLA. Chest: Some crepitus at the bases. Cardiovascular: RRR. Abdomen: Soft, nontender, nondistended. No hepatosplenomegaly. She has an old scar in the infraumbilical area. Extremities: No edema, no clubbing, no cyanosis. Neurological: The patient is alert and oriented x3. No focal deficits. LABORATORY: WBC 8.8, hemoglobin 9.8, hematocrit 33.4, platelets 290,000. Sodium 135, potassium 3.8, chloride 97, bicarbonate 25, BUN 13, creatinine 0.8, glucose 130, calcium 9.5, albumin 3.2. I checked her nose and the pack has been removed. No obvious bleeding. Her throat looks fine as well. DISCHARGE MEDICATIONS: Amlodipine 5 mg p.o. daily, atorvastatin 40 mg p.o. at bedtime, Tessalon Perles 100 mg p.o. t.i.d. as needed for cough, carvedilol 12.5 mg p.o. b.i.d., clonidine 0.2 mcg daily, Synjardy XR mg tablet daily, levofloxacin 750 mg p.o. daily, losartan 50 mg p.o. daily and MiraLAX 17 g p.o. daily. The patient is feeling much better. White blood cell count normalized. She is still coughing some, and I do believe she has an upper respiratory infection. I will continue with levofloxacin for 4 more days, she will be discharged home, and she will follow up with her primary care doctor in 1 week. This has been discussed with the patient, and she agreed with that. I gave her a prescription for at least 3 months of her blood pressure medications. When I talked to her about her insulin, she does not remember what kind of insulin she has at home so I will not do any kind of modifications. I will continue with same management, but I asked her to use the medications as prescribed and not every other day. cc: MD Stone Ca MD
== END 2019-07-02 10:15 | disposition home or self-care (01) | DRG 987 ==
LOC: SUPCPDRO → SUATTDRO → ED 10:47 → ICU 15:30 → SUATTDRO 15:30
PROVIDERS: ADMIT Internal Medicine; ATTEND Internal Medicine